=== PATIENT | male | born 1980 | race Caucasian/White ===

== ENCOUNTER 2018-10-12 03:33 | Emergency (ER) | payer OTHER ==
[~2018-10-12] VITALS: Ht 170.2 cm; Wt 104.3 kg
--- NOTE | 2018-10-12 03:45 | NUR ---
Patient ambulated stable gait. AAxO x4. Speech is clear and is able to speak in complete sentences. No neuro deficits. Patient came in for c/o SOB x2 days and worsening last night. Patient reported using rescue inhalers however were ineffective. Patient SAO2 at 99% room air. No cardiovascular distress, all pulses palpable. No GI/ distress. Patient in bed at lowest setting, side rails up x2, call light within reach. Fall precautions implemented per protocol.
--- NOTE | 2018-10-12 03:48 | NUR ---
[employer] at bedside for breathing treatment.
[2018-10-12] MEDS ORDERED: predniSONE 20 MG TABLET ONE (03:51)
[2018-10-12] MEDS ORDERED: IPRATROPIUM BROMIDE 0.5 MG/2.5 ML NEBU ONE (03:54)
[2018-10-12] MEDS ORDERED: ALBUTEROL SULFATE 2.5 MG/3 ML NEBU ONE (03:54)
[2018-10-12] MEDS ORDERED: predniSONE 10 MG TABLET PO ONE (04:00)
[2018-10-12] MEDS ORDERED: IPRATROPIUM BROMIDE 0.5 MG/2.5 ML NEBU NEB ONE (04:00)
[2018-10-12] MEDS ORDERED: ALBUTEROL SULFATE 2.5 MG/3 ML NEBU NEB ONE (04:00)
--- NOTE | 2018-10-12 05:02 | NUR ---
Patient discharged to home in stable conditon. Written and verbal after care instructions given. Patient verbalizes understanding of instructions. Patient ambulated with stable gait.
[2018-10-12 05:03] VITALS: BP 152/79
== END 2018-10-12 05:04 | disposition home or self-care (01) ==
LOC: ER 03:49
DX: J20.9 Acute bronchitis, unspecified (principal); J45.909 Unspecified asthma, uncomplicated; Z88.0 Allergy status to penicillin; Z88.8 Allergy status to other drugs, medicaments and biological substances
CPT/HCPCS: 71045; 87400; 94640; 99284; J7512; A4663; J3590